=== PATIENT | female | born 1970 | race Caucasian/White ===

== ENCOUNTER 2017-12-09 11:16 | Inpatient (IN) | payer OTHER ==
--- NOTE | 2017-12-09 12:23 | ED Physician Documentation ---
PD HPI FOCAL NEURO - Stated complaint Stated Complaint: UNABLE TO WALK - Chief complaint Chief Complaint: Ext Problem - History obtained from History obtained from: Patient, Family - History of Present Illness Timing - onset: Other (Starting Sunday she had some mild back pain and yesterday morning she awoke with right leg weakness and it was giving out on her. She is unable to walk for the most part. The back pain is mild and she denies numbness in that leg or weakness or numbness anywhere else including both arms, the face, the left leg, and the saddle area. She has not had incontinence. She does have a history of polio in the right leg but it has never been debilitating for her. She says she does have a history of untreated hypertension and does not know what her blood pressure was the last time it was checked, but she does not seem to surprised that it is as high as it was when she checked in.) Review of Systems Ten Systems: 10 systems reviewed and negative Constitutional: denies: Fever, Chills Cardiac: denies: Chest pain / pressure, Palpitations Respiratory: denies: Dyspnea, Cough GI: denies: Abdominal Pain, Nausea Neurologic: denies: Headache, Head injury PD PAST MEDICAL HISTORY - Past Medical History Past Medical History: Yes Cardiovascular: Hypertension Other Past Medical History: poss. hx of polio as a child - Past Surgical History Past Surgical History: Yes General: Appendectomy - Present Medications Home Medications: Ambulatory Orders Medication Instructions Recorded Confirmed No Known Home Medications [No 12/09/17 12/09/17 Known Home Medications] - Allergies Allergies/Adverse Reactions: Allergies Allergy/AdvReac Type Severity Reaction Status Date / Time No Known Drug Allergies Allergy Verified 12/09/17 11:28 - Social History Does the pt smoke?: No Smoking Status: Never smoker Does the pt drink ETOH?: No Does the pt have substance abuse?: No - Family History Family history: reports: Non contributory - Immunizations Immunizations are current?: No PD ED PE NORMAL - Vitals Vital signs reviewed: Yes - General General: Alert and oriented X 3, No acute distress - HEENT HEENT: PERRL, EOMI - Neck Neck: Supple, no meningeal sign, No bony TTP - Cardiac Cardiac: RRR, No murmur - Respiratory Respiratory: No respiratory distress, Clear bilaterally - Abdomen Abdomen: Normal bowel sounds, Soft, Non tender - Derm Derm: Normal color, Warm and dry - Extremities Extremities: No edema, No calf tenderness / cord - Neuro Neuro: Alert and oriented X 3, legal paraprofessional 2-12 intact, Normal speech Eye Opening: Spontaneous Motor: Obeys Commands Verbal: Oriented GCS Score: 15 NIHSS - Time Time: 12:10 - Level of Consciousness Level of consciousness: (0) Alert, Keenly responsive LOC Questions: (0) Answers both Q's correct LOC Commands: (0) Performs both correctly - Gaze Best Gaze: (0) Normal - Visual Visual: (0) No loss - Facial Palsy Facial Palsy: (0) Normal, symmetrical movement - Motor Arms (both separate) Motor Arm (right): (0) No drift Motor Arm (left): (0) No drift - Motor Legs (both separate) Motor Leg (right): (1) Drift (she is weak elina flex/ext at the knee. B patellar reflexes and achilles reflexes about 1+) Motor Leg (left): (0) No drift - Limb Ataxia Limb Ataxia: (0) Absent - Sensory Sensory: (0) Normal - Best Language Best Language: (0) No aphasia - Dysarthria Dysarthria: (0) Normal - Extinction and Inattention (formally neg Extinction and inattention: (0) No abnormality - Total Score/Results Total Score/Result: 1 Results - Vitals Vitals: Vital Signs - 24 hr 12/09/17 12/09/17 11:20 13:28 Temperature 36.6 C Heart Rate 71 72 Respiratory 17 12 Rate Blood Pressure 213/124 H 175/89 H O2 Saturation 98 95 Oxygen O2 Source Room air - EKG (time done) 1227 Rate: Rate (enter#) (73) Rhythm: NSR [place]: Normal QRS: LVH Ischemia: Q waves (inferior/anterior) Compare to prior EKG: Old EKG unavailable Computer interpretation: Agree with computer - Labs Labs: Laboratory Tests 12/09/17 12/09/17 12/09/17 12:25 12:25 12:25 WBC 10.1 RBC 4.87 Hgb 14.0 Hct 41.7 MCV 85.7 MCH 28.7 MCHC 33.5 RDW 13.6 Plt Count 361 MPV 8.0 Neut # 7.5 H Lymph # 2.1 Dickenson # 0.4 Eos # 0.1 Baso # 0.1 Absolute Nucleated RBC 0.00 Nucleated RBC % 0.0 Sodium 141 Potassium 3.3 L Chloride 103 Carbon Dioxide 28 Anion Gap 10.0 BUN 8 Creatinine 0.6 Estimated GFR (MDRD) 107 Glucose 146 H Calcium 9.1 Total Bilirubin 0.5 AST 28 ALT 25 Alkaline Phosphatase 84 Total Creatine Kinase 521 H CK-MB (CK-2) 4.5 Troponin I < 0.04 Total Protein 7.5 Albumin 4.3 Globulin 3.2 Albumin/Globulin Ratio 1.3 Lipase 30 Urine Color Urine Clarity Urine pH Ur Specific [place] Urine Protein Urine Glucose (UA) Urine Ketones Urine Occult Blood Urine Nitrite Urine Bilirubin Urine Urobilinogen Ur Leukocyte Esterase Urine RBC Urine WBC Ur Squamous Epith Cells Urine Bacteria Ur Microscopic Review Urine Culture Comments 12/09/17 13:15 WBC RBC Hgb Hct MCV MCH MCHC RDW Plt Count MPV Neut # Lymph # Dickenson # Eos # Baso # Absolute Nucleated RBC Nucleated RBC % Sodium Potassium Chloride Carbon Dioxide Anion Gap BUN Creatinine Estimated GFR (MDRD) Glucose Calcium Total Bilirubin AST ALT Alkaline Phosphatase Total Creatine Kinase CK-MB (CK-2) Troponin I Total Protein Albumin Globulin Albumin/Globulin Ratio Lipase Urine Color YELLOW Urine Clarity CLOUDY Urine pH 6.5 Ur Specific [place] 1.020 Urine Protein 30 H Urine Glucose (UA) NEGATIVE Urine Ketones NEGATIVE Urine Occult Blood TRACE-LYSE Urine Nitrite POSITIVE H Urine Bilirubin NEGATIVE Urine Urobilinogen 0.2 (NORMAL) Ur Leukocyte Esterase MODERATE H Urine RBC 0-5 Urine WBC 11-25 H Ur Squamous Epith Cells FEW Squamous Urine Bacteria Many H Ur Microscopic Review INDICATED Urine Culture Comments INDICATED - Rads (name of study) CT Head Radiology: EMP read contemporaneously (Normal) PD MEDICAL DECISION MAKING - ED course ED course: 47-year-old woman with new right leg weakness that certainly could be kind of a sciatica type thing but it is not associated with numbness in her back pain is mild, given the association with significant blood pressure issues, neurologic issue, a central neurologic issue must be considered. Her head CT was negative. She is clearly outside of the timeframe for TPA. Spoke with Dr. Jaimes for admission at 1:35 PM and he requests that we consult with neurology prior to this given her young age and [facility] was called for consultation. At that point her blood pressure drifted down to 165/77 without specific intervention. Spoke with Eusebia Andrew at [facility] ([id number]) who agreed with obs here for MRI Brain (+/- MRI Lspine) Departure - Departure Disposition: ED Place in Observation Clinical Impression: Stroke-like symptoms Condition: Serious
[2017-12-09 12:35] LABS: BASOPHILS # (AUTO) 0.1 10^3/uL (0.0-0.1); BASOPHILS % (AUTO) 0.8 %; EOSINOPHILS # (AUTO) 0.1 10^3/uL (0.0-0.7); EOSINOPHILS % (AUTO) 0.6 %; LYMPHOCYTES # (AUTO) 2.1 10^3/uL (1.5-3.5); LYMPHOCYTES % (AUTO) 20.4 %; MEAN CORPUSCULAR HEMOGLOBIN 28.7 pg (27.0-31.0); MEAN CORPUSCULAR HGB CONC 33.5 g/dL (32.0-36.0); MEAN CORPUSCULAR VOLUME 85.7 fL (81.0-99.0); MONOCYTES # (AUTO) 0.4 10^3/uL (0.0-1.0); MONOCYTES % (AUTO) 3.7 %; NEUTROPHILS # (AUTO) 7.5 10^3/uL (1.5-6.6); NEUTROPHILS % (AUTO) 74.5 %; PLT - PLATELET COUNT 361 10^3/uL (130-450); RED BLOOD COUNT 4.87 10^6/uL (4.20-5.40); RED CELL DISTRIBUTION WIDTH 13.6 % (12.0-15.0); WHITE BLOOD COUNT 10.1 x10^3/uL (4.8-10.8)
[2017-12-09 12:46] LABS: ALBUMIN 4.3 g/dL (3.2-5.5); ALBUMIN/GLOBULIN RATIO 1.3 (1.0-2.2); BILIRUBIN,TOTAL 0.5 mg/dL (0.2-1.0); CALCIUM 9.1 mg/dL (8.5-10.3); CREATININE 0.6 mg/dL (0.4-1.0); TOTAL PROTEIN 7.5 g/dL (6.7-8.2)
[2017-12-09 12:50] LABS: TROPONIN I < 0.04 ng/mL (<0.49)
[2017-12-09 12:53] LABS: CREATINE KINASE MB 4.5 ng/mL (0.6-6.3)
--- NOTE | 2017-12-09 13:14 | CT Report ---
EXAM: CT HEAD EXAM DATE: 12/09/2017 12:53 PM. CLINICAL HISTORY: R leg deficits. COMPARISON: None. TECHNIQUE: Multiaxial CT images were obtained from the foramen magnum to the vertex. Reformats: Coron al. IV contrast: None. In accordance with CT protocol optimization, one or more of the following dose reduction techniques w ere utilized for this exam: automated exposure control, adjustment of mA and/or KV based on patient s ize, or use of iterative reconstructive technique. FINDINGS: Parenchyma: No intraparenchymal hemorrhage. No evidence of mass, midline shift, or CT findings of inf arction. Stuart-white differentiation is distinct. Extraaxial Spaces: Normal for age. No subdural or epidural collections identified. Ventricles: Normal in size and position. Sinuses and Orbits: Imaged paranasal sinuses, orbits, and mastoids show no significant abnormality. Bones: No evidence of fracture or calvarial defect. IMPRESSION: No evidence of acute intracranial process [facility] Referring Provider Line: [phone] SITE ID: [id number]
--- NOTE | 2017-12-09 13:14 | CT Preliminary Report ---
Exam: CT HEAD W/O IMPRESSION: No evidence of acute intracranial process [facility] SITE ID: [id number]
[2017-12-09] MEDS ORDERED: ASPIRIN CHEW 81 MG TABLET PO STA (13:25)
[2017-12-09 13:28] LABS: BILIRUBIN,URINE NEGATIVE (NEGATIVE); GLUCOSE, URINE (UA) NEGATIVE (NEGATIVE); KETONES,URINE (UA) NEGATIVE (NEGATIVE); LEUKOCYTE ESTERASE, URINE MODERATE (NEGATIVE); NITRITE,URINE POSITIVE (NEGATIVE); OCCULT BLOOD,URINE TRACE-LYSE (NEGATIVE); PH,URINE 6.5 PH (5.0-7.5); PROTEIN,URINE 30 mg/dL (NEGATIVE); UROBILINOGEN,URINE 0.2 (NORMAL) E.U./dL (NORMAL)
[2017-12-09 13:34] LABS: CLARITY,URINE CLOUDY (CLEAR)
[2017-12-09 13:42] LABS: RBC,URINE 0-5 /HPF (0-5); SQUAMOUS EPITHELIAL CELL,UR FEW Squamous (<= Few)
[2017-12-09 13:43] LABS: BACTERIA,URINE Many /HPF (None Seen)
[2017-12-09] MEDS ORDERED: SODIUM CHLORIDE FLUSH 0.9% 10 ML SYRINGE IVP PRN (14:27)
[2017-12-09] MEDS ORDERED: ACETAMINOPHEN 325 MG TABLET PO PRN (14:27)
[2017-12-09] MEDS ORDERED: SODIUM CHLORIDE 0.9% IV ONE (17:09)
[2017-12-09] MEDS: SODIUM CHLORIDE FLUSH 0.9% 10 ML SYRINGE IVP SCH ×2 (17:18→23:54)
[2017-12-09] MEDS: cefTRIAXone 1 GM in SODIUM CHLORIDE 0.9% MINIBAG 100 ML IV SCH (17:18)
--- NOTE | 2017-12-09 19:00 | HISTORY & PHYSICAL EXAMINATION ---
Chief Complaint - Chief Complaint Chief Complaint: "My leg is so weak, I fell because it gave out" History of Present Illness - Admitted From Admitted From:: ER - History Obtained From Records Reviewed: none available History obtained from: Pateint Exam Limitations: none - History of Present Illness HPI Comment/Other: Rajani Nunez is a pleasant 47yoF with hx of untreated hypertension and polio as a child. She does not have a PCP and only sees [facility] for prn needs. She is self described [id number] who commutes to [place] from [facility] for work, reports recent weight gain due to stress and inactivity. Patient was in her usual state of health until Sunday morning when she awoke for work. She had new mild low back pain and right leg weakness. 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 No other injury. She reports also feeling "off balance" but denies dizziness. She drove home after work, having to move inch by inch when no supporting wall or rail available. She put a brace on it at home for support. Today the symptoms were not better so she came to ER for eval. She denies visual changes, no confusion or speech changes. No pain in the leg or change in sensation. She has had no dizziness/lightheadedness or syncope. She denies similar episodes in the past. Denies prior injury. Denies bowel or bladder change/incontinence. --- Her BP is high, she says she is nto suprised. It had been high in [facility] before but she is very much against taking medications unless absolutely necessary. --- Of note 6-7mo ago she reports problem with the left arm where the deltoid went cold and weak, she couldn't lift her arm. She says the hand "would take off on its own". She saw [facility], told she had carpal tunnel, given a brace. No symptoms recently. ER course of stay: In ER hypertensive and tachycardic, Labs remarkable for UTI, renal function WNL. Her CK is elevated 521. Case discussed with Vietnamese Neuro who recommends MRI brain and L-spine. Hospitalist contacted for admission. 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 : reports: None HEENT: reports: Chronic vision loss Psych: reports: None Musculoskeletal: reports: None Derm: reports: None MRSA Hx?: No - Past Surgical History General: reports: Appendectomy - Family & Social History Family History: Mother: , Cancer (MMMT), Father: , CAD, [place] (age 80), Sister: Alive and Well Living arrangement: At home Living Situation: Alone - Substance History Use: Uses substance without health or social issues: NONE Abuse: Recurrent use of substance despite neg consequences: NONE Dependence: Experiences withdrawal or developed tolerances: NONE - POLST Patient has POLST: No POLST Status: Full Code Meds/Allgy - Home Medications Home Medications: Ambulatory Orders Medication Instructions Recorded Confirmed No Known Home Medications [No 12/09/17 12/09/17 Known Home Medications] - Allergies Allergies/Adverse Reactions: Allergies Allergy/AdvReac Type Severity Reaction Status Date / Time No Known Drug Allergies Allergy Verified 12/09/17 11:28 Review of Systems - Constitutional Constitutional: reports: Weight gain (25lbs in a years). denies: Fever, Chills - Eyes Eyes: reports: Corrective lenses (readers). denies: Pain, Field loss, Vision loss - Ears, Nose & Throat Ears, Nose & Throat: reports: Hearing loss. denies: Hearing aids, Vertigo - Cardiovascular Cariovascular: reports: Edema (occasional BLE after driving). denies: Irregular heart rate, Palpitations, Chest pain, Lightheadedness, Syncope, Exertional dyspnea - Respiratory Respiratory: denies: Cough, SOB at rest, SOB with exertion - Gastrointestinal Gastrointestinal: denies: Abdominal pain, Constipation, Diarrhea, Nausea, Vomiting - Genitourinary Genitourinary: reports: Frequency ("due to 2 pots of coffee a day"). denies: Dysuria - Musculoskeletal Musculoskeletal: reports: Back pain (mild low back), Muscle weakness (right leg) . denies: Muscle pain, Joint pain - Integumentary Integumentary: denies: Rash - Neurological Neurological: reports: Focal weakness (RLE). denies: General weakness, Headache , Numbness, Memory problems - Psychiatric Psychiatric: reports: Depression (recently, situational) - Hematologic/Lymphatic Hematologic/Lymphatic: denies: Anemia, Bruising, Blood clots, Recurrent infections Exam - Vital Signs Reviewed Vital Signs: Yes Vital Signs: Vital Signs x48h Temp Pulse Pulse Pulse Resp BP BP 12/09/17 15:55 63 154/81 H 12/09/17 15:36 36.7 C 67 67 16 185/67 H 12/09/17 15:22 80 16 166/107 H Pulse Ox 12/09/17 15:55 12/09/17 15:36 95 12/09/17 15:22 98 - Physical Exam General Appearance: positive: No acute distress, Alert Eyes Bilateral: positive: Normal inspection, PERRL, EOMI, Conjunctivae nml ENT: positive: Pharynx nml, No signs of dehydration Neck: positive: No JVD. negative: Stiff neck, Carotid bruit Respiratory: positive: Chest non-tender, No respiratory distress, Breath sounds nml Cardiovascular: positive: Regular rate & rhythm, No murmur Peripheral Pulses: positive: 2+ Abdomen: positive: Non-tender, Nml bowel sounds, No distention (obese, soft) Back: positive: Nml inspection Skin: positive: Color nml, Warm, Dry. negative: Skin rash Extremities: positive: Non-tender, Full ROM, Nml appearance (trace pre-tibial edema). negative: Calf tenderness, Joint swelling Neurologic/Psychiatric: positive: Oriented x3, Sensation nml, Mood/affect nml. negative: Motor nml (RLE with decreased strnegth in flexion and decreased ability to hold up against gravity, cannot lift against resistance, decreased coordination for heel-joshua slide.) Conclusion/Plan - Problem List (1) Right leg weakness Conclusion/Plan: Symptom onset acute, x1d without improvement or worsening. No sensory deficit. NO offending drugs Differentials include: 1. hemmorrahgic stroke or SAH - R/O, neg head CT 2. ischemic stroke - get MRI brain 3. lumboscaral radiculopathy (although no pain) - MRI L spine 4. Polymyositis - no skin findings c/w DM or PM 5. Myositis r/t connective tissue disease, lupus, RA or sjogren's (no hx of any of these) 6. Hypothryoidism, given recent weight gain - check TSH 7. Spinal cord disease - R/O, no urinary symptoms and not bilateral 8. Infection - rare to be so focal, has UTI, will treat work-up as noted for each (2) Hypertension Conclusion/Plan: Hx of previous high readings, but care at multiple [facility] so never diagnosed or treated. Given stroke still on differential and this is chronic, will allow for permissive HTN till MRI is negative, then consider low dose antihypertesnive if patientis willing to start this. She is quite reluctant to take any meds. -Monitor BP routinely and titrate meds as needed (3) UTI (urinary tract infection) Conclusion/Plan: UA c/w infection, no LUTS though. Given focal weakness, will treat empirically. -CTX daily -Await cx - Lab Results Lab results reviewed: Yes Jamie Bones: 12/09/17 12:25 12/09/17 12:25 - EKG Results EKG Interpreted Independently: Yes Core Measures - Anticipated LOS I expect patient to be DC'd or transferred within 96 hours.: Yes - DVT/VTE - Prophylaxis VTE/DVT Device ordered at admit?: No VTE/DVT Prophylaxis med ordered at admit?: Yes - Stroke - Rehab Assessment Rehab services assessment to be ordered?: Yes
[2017-12-10 06:29] LABS: HEMOGLOBIN A1C 0.53 g/dL; HEMOGLOBIN A1C % 5.6 % (4.6-6.2)
[2017-12-10] MEDS: cefTRIAXone 1 GM in SODIUM CHLORIDE 0.9% MINIBAG 100 ML IV SCH (08:37)
[2017-12-10] MEDS: ENOXAPARIN 40 MG/0.4 ML SYRINGE SUBQ SCH (08:37)
[2017-12-10] MEDS: SODIUM CHLORIDE FLUSH 0.9% 10 ML SYRINGE IVP SCH ×3 (08:38→23:56)
[2017-12-10] MEDS: POLYETHYLENE GLYCOL 3350 17 GM PACKET PO SCH (08:39)
[2017-12-10] MEDS ORDERED: LORazepam 0.5 MG TABLET PO SCH (09:00)
[2017-12-10] MEDS ORDERED: ASPIRIN 325 MG TABLET PO SCH (11:00)
--- NOTE | 2017-12-10 12:47 | MRI Preliminary Report ---
Exam: MRI BRAIN W/O Impression: 1. Small, acute to subacute (7 days old or less). Lacunar type infarction, left nick radiata as vlad cribed. 2. Foci of encephalomalacia are seen in the posterior and inferior right cerebellum, consistent with the sequela of prior, embolic type infarction. This is in the right ICA territory. 3. There is a moderate amount of white matter disease in the supratentorial brain. The etiology is un certain. The findings are relatively nonspecific and differential diagnostic considerations would inc lude virtually the entire gamma to primary disease, including a demyelinating process. Overall appear ance is most suggestive of chronic microangiopathy, however, this would be unusual in a patient of 47 years. There is no involvement of the temporal lobes, suggesting that CADASIL is unlikely. Is there a history of diabetes, hypertension or other cause for predisposition to small vessel disease in this patient? 4. No other significant intracranial pathology is demonstrated. Main arteries appear patent. SITE ID: [id number]
--- NOTE | 2017-12-10 12:55 | MRI Preliminary Report ---
Exam: MRI LUMBAR SPINE W/O Impression: 1. Degenerative disk and facet changes are seen at multiple levels in lumbar spine as described. 2. The degenerative changes are most prominent at the L4-L5 level where there is moderate to severe c entral zone spinal stenosis and relatively severe subarticular zone (lateral recess causing. Stenosis bilaterally. There could potentially be compromise of traversing L5 nerve roots in the subarticular sound. Recommend clinical correlation for L5 radiculopathy. 3. No other significant stenosis is demonstrated and no other potential neural impingement is identif ied. SITE ID: [id number]
[2017-12-10] MEDS ORDERED: LISINOPRIL 5 MG TABLET PO SCH (13:00)
[2017-12-10] MEDS ORDERED: ATORVASTATIN 40 MG TABLET PO SCH (13:00)
[2017-12-10 13:48] LABS: CHOL/HDL RATIO 3.5 (<4.4); CHOLESTEROL 198 mg/dL; HDL CHOLESTEROL 56 mg/dL; LDL CHOLESTEROL,CALCULATED 123 mg/dL; LDL/HDL RATIO 2.2 (<4.4); VLDL CHOLESTEROL 19 mg/dL
--- NOTE | 2017-12-10 13:57 | MRI Report ---
MRI brain without contrast INDICATION: 47-year-old female with right leg weakness. Please assess. COMPARISON: Head CT 12/09/2017. TECHNIQUE: 1. T1 sagittal and fat saturated T2 coronal. 2. Axial T1 3-D, FLAIR, T2, T2*, and DWI. FINDINGS: The third and lateral ventricles are mildly enlarged. The cortical sulci are small. This probably rep resents ex vacuo ventriculomegaly due to central volume loss. There is at least a moderate amount of white matter disease in the supratentorial brain, manifested as focal and confluent T2 hyperintensiti es that are scattered throughout the paraventricular, deep, and subcortical white matter bilaterally. In addition, there is involvement of both subinsular regions. Estimate is difficult given the absenc e of a sagittal T2 FLAIR sequence; however, there does appear to be some involvement of the pericallo yaneli white matter bilaterally. However, no true juxtacortical lesion is demonstrated. In addition, no obvious corpus callosal lesion is identified and no focal brainstem lesion is demonstrated. There are small foci of encephalomalacia in the posterior and inferior right cerebellum, consistent w ith the sequela of remote embolic-type infarction. This is in the right PICA territory. No diffusion restriction is demonstrated at this time. There appear to be flow voids for the main intracranial arteries. On DWI, a curvilinear focus of diff usion restriction is demonstrated in the posterior left nick radiata, extending over a distance of roughly 1.5 x 0.6 cm. This is consistent with recent infarction. This probably represents a small ves silvio-type infarction rather than an embolic infarction. No other diffusion restriction is demonstrated . No evidence of acute or chronic hemorrhage on T2*GRE sequence. Noted is a prominent tortuous loop of the left vertebral artery that contacts and significantly inden ts/deforms the medulla, most prominent anteriorly on the left. The clinical significance of this find ing is uncertain. No abnormal extra-axial fluid collection. No mass effect or midline shift. Limited assessment of the orbits reveals no gross pathology. The paranasal sinuses are essentially clear. No mastoid and middle ear effusion is demonstrated. IMPRESSION: 1. Small acute to subacute (7 days old or less) lacunar-type infarction, left nick radiata as descr ibed. 2. Foci of encephalomalacia are seen in the posterior and inferior right cerebellum, consistent with the sequela of prior embolic-type infarction. This is in the right PICA territory. 3. There is a moderate amount of white matter disease in the supratentorial brain. The etiology is un certain. The findings are relatively nonspecific and differential diagnostic considerations would inc lude virtually the entire gamut of white matter disease, including a demyelinating process. Overall a ppearance is most suggestive of chronic microangiopathy; however, this would be unusual in a patient of 47 years. There is no involvement of the temporal lobes, suggesting that CADASIL is unlikely. Is t here a history of diabetes, hypertension or other cause for predisposition to small vessel disease in this patient? 4. No other significant intracranial pathology is demonstrated. Main arteries appear patent. Critical result: A preliminary report for this examination was called to ERVIN Medrano, following interpretatio n on 12/10/2017 at approximately 12:44 PM Referring Provider Line: [phone] SITE ID: [id number]
--- NOTE | 2017-12-10 13:57 | MRI Report ---
MRI LUMBAR SPINE WITHOUT CONTRAST INDICATION: 47-year-old female with right leg weakness. COMPARISON: None. TECHNIQUE: 1. Sagittal STIR, T1 and T2. 2. Axial T1 and T2 FINDINGS: For the purposes of this dictation, the presence of 5 wdo-noa-eetanuo lumbar-type vertebrae has been assumed and the last fully articulated level has been labeled L5. There is a minor levoconvex curvatu re with apex at L3. With the patient lying supine, the [place] angle appears to measure about 6 degrees. Alignment is otherwise normal. There is mild concavity of vertebral endplates at a few levels, consistent with old minor central-typ e endplate compression fracture. Vertebral body heights are otherwise preserved. No evidence of recen t (acute or subacute) compression fracture. There is loss of normal T2 signal from the disks at all levels, confirming degenerative change. Howev er, the disk space heights are maintained throughout. A few T1/T2 hyperintense foci are demonstrated consistent with intraosseous hemangiomata or other shwetha ign fat-containing bone lesion. Marrow signal intensity is otherwise unremarkable. It is somewhat difficult to localize the tip of the conus on the sequences provided. It probably term inates in a normal fashion, at or just below the L1-L2 disk level. There is no abnormal thickening or lipomatous change of the filum. Axial images: L2-L3: No disk herniation. No spinal canal or foraminal stenosis. L3-L4: Tiny right-sided intraforaminal protrusion. Larger broad-based left intra-/extraforaminal prot rusion. Minor left subarticular zone stenosis. No impingement of traversing left-sided nerve roots. N o central zone or right subarticular zone stenosis. Mild left foraminal stenosis. L4-L5: Circumferential disk bulge. Small right intra-/extraforaminal protrusion. Larger broad-based l eft intra-/extraforaminal extrusion. Degenerative facet arthrosis with mild to moderate bony hypertro phy. Moderate redundancy of the ligamenta flava and mild prominence of the intralaminar fat pad. Circ umferential thecal sac compression. There is relatively severe subarticular zone narrowing bilaterall y. There could be compromise of traversing L5 nerve roots. Moderate to severe central zone spinal maryanne nosis. Moderate bilateral foraminal stenoses. L5-S1: Shallow posterior protrusion. No mass effect on the thecal sac or S1 nerve roots. Degenerative facet arthrosis with moderate bony hypertrophy. No foraminal encroachment. Very mild fatty atrophy is identified in the posterior paraspinal musculature. There appears to be a tiny (roughly 3 mm diameter) submucosal fibroid in the anterior uterus (see image 3 of series 401). T he regional paraspinous soft tissues are otherwise unremarkable. IMPRESSION: 1. Degenerative disk and facet changes are seen at multiple levels in lumbar spine as described. 2. The degenerative changes are most prominent at the L4-L5 level where there is moderate to severe c entral zone spinal stenosis and relatively severe subarticular zone (lateral recess) stenosis bilater ally. There could potentially be compromise of traversing L5 nerve roots in the subarticular zone. Re commend clinical correlation for L5 radiculopathy. 3. No other significant stenosis is demonstrated and no other potential neural impingement is identif ied. Referring Provider Line: [phone] SITE ID: [id number]
--- NOTE | 2017-12-10 18:50 | PROVIDER PROGRESS NOTE ---
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 No sensory deficit. No other neurologic deficits. Differntial considered and workup included normal head CT. MRI brain today with severe white matter disease, OLD R PICA embolic type infarct and NEW L lacunar infarct, more likely from small vessel disease. Longstanding uncontrolled HTN likely contributing. 6pm noted to have increasing RUE weakness, +drift and poor coordination. D/w Dr Alberto Palafox, [facility] neuro, advises that lacunar type infarct often wax/wane of have further extension. Recommends: -IVF to increase cerebral perfusion, hold antihypertensive -CT brain to r/o hemorrhagic conversion -CTA head/neck to assess vascular structures +He will be oncall tomorrow and feel free to touch base with results -Continue tele -Await ECHO and carotid US results -PT/OT eval, reccs IRF, referrals sent to [facility] -ASA + statin (2) Uncontrolled hypertension Conclusion/Plan: Hx of previous high readings, but care at multiple [facility] so never diagnosed or treated. Given stroke in differential on admit, permissive HTN allowed. -Now 48hr post insult and started on low dose lisinopril. AM BP fluctuating 150/80-200/80. +given new symptoms, lisinopril stopped, resume at 2.5mg in future -Monitor BP routinely and titrate meds as needed (3) UTI (urinary tract infection) Conclusion/Plan: UA c/w infection, no LUTS though. Cx E coli. -CTX daily -Await cx sensitivity and switch to PO agent - Current Meds Current Meds: Current Medications Generic Name Dose Route Start Last Admin Trade Name Freq PRN Reason Stop Dose Admin Aspirin 325 mg 12/10/17 11:00 12/10/17 12:31 Ese PO 325 mg DAILYWM MONICA Administration Enoxaparin Sodium 40 mg 12/10/17 09:00 12/10/17 08:37 Lovenox SUBQ 40 mg DAILY MONICA Administration Polyethylene Glycol 17 gm 12/10/17 09:00 12/10/17 08:39 Miralax PO Not Given DAILY MONICA Sodium Chloride 10 ml 12/09/17 17:00 12/10/17 08:38 Normal Saline Flush 0.9% IVP 10 ml 0100,0900,1700 MONICA Administration - Lab Result Fish Bone Diagrams: 12/09/17 12:25 12/09/17 12:25 - Diagnostic Imaging Results Diagnostic Imaging Results: Discussed with radiologist (Dr Rivera) - Additional Planning Condition/Complexity: Guarded My Orders: My Active Orders 12/10/17 Evaluate and Treat OT [OT] Routine Evaluate and Treat PT [PT] Routine 12/10/17 11:00 Aspirin [Ese] 325 mg PO DAILYWM 12/10/17 13:50 Echo Complete w/Bubble Study [ECHO] Routine 12/10/17 13:51 Carotid Doppler Complete [US] Routine 12/10/17 18:21 NPO [DIET] Brain [Head Angio] [CT] Stat 12/10/17 18:22 Brain W/O [MRI] Stat 12/10/17 19:00 NS 0.9% @ 125 mls/hr Sodium Chloride 0.9% [Normal Saline 0.9%] 1,000 ml IV 125 mls/hr 12/10/17 21:00 Atorvastatin [Lipitor] 80 mg PO QPM 12/11/17 09:00 cefTRIAXone [Rocephin] 1 gm Sodium Chloride 0.9% Minibag [Normal Saline 0.9% Minibag] 100 ml IV Q24H Consult/Specialty: Neurology (Dr Alberto Palafox @ 1820 related to new symptoms) Plan Discussed with:: Patient Time Spent: 31-60 minutes Subjective - Subjective Patient Reports: Other (Increasing RUE weakness, no pain. Has some timgling in the hand and foot, she thinks from lack of use.. No visual, speech or sensation changes) Objective Vital Signs: Vital Signs - 24 hr 12/09/17 12/10/17 12/10/17 19:59 00:00 05:58 Temperature 37.1 C 36.7 C 36.5 C Heart Rate [ Activity] Heart Rate [ 72 Brachial] Heart Rate [ 66 64 Radial] Heart Rate [ Supine] Respiratory 20 20 18 Rate Blood Pressure [Activity] Blood Pressure 153/74 H 183/82 H 165/82 H [Left Brachial artery] Blood Pressure [Supine] O2 Saturation 94 96 97 12/10/17 12/10/17 12/10/17 07:17 08:04 10:26 Temperature 36.6 C Heart Rate [ 85 Activity] Heart Rate [ Brachial] Heart Rate [ 64 73 Radial] Heart Rate [ 80 Supine] Respiratory 18 Rate Blood Pressure 200/80 H [Activity] Blood Pressure 180/86 H 152/80 H [Left Brachial artery] Blood Pressure 175/73 H [Supine] O2 Saturation 96 12/10/17 12/10/17 12/10/17 10:28 13:36 15:20 Temperature 37.2 C 37.1 C Heart Rate [ 85 Activity] Heart Rate [ 68 Brachial] Heart Rate [ 86 Radial] Heart Rate [ 81 Supine] Respiratory 19 20 Rate Blood Pressure 200/80 H [Activity] Blood Pressure 178/97 H 143/59 H [Left Brachial artery] Blood Pressure 175/73 H [Supine] O2 Saturation 98 96 Oxygen O2 Source Room air I&O (Last 24 Hrs): Intake and Output Totals x24h 12/08/17 12/09/17 12/10/17 23:59 23:59 23:59 Intake Total 700 1090 Output Total 775 Balance 700 315 General: No acute distress HEENT: Atraumatic, PERRLA, EOMI Neck: No JVD Neuro: Alert, Focal Deficits (RUE with weakness, poor dexterity (finger to nose) , +drift. RLE with weakness, poor dexterity), Oriented Times 3, Other (speech clear, EOMI, Left side with normal strength) Cardiovascular: Regular rate, No murmurs Respiratory: Chest non-tender, No respiratory distress, Breath sounds nml Abdomen: Normal bowel sounds, Soft Extremities: No clubbing, No cyanosis, No edema, Normal pulses Skin: No rashes, No breakdown - Results Results: Laboratory Results WBC 10.1 x10^3/uL (4.8-10.8) 12/09/17 12:25 RBC 4.87 10^6/uL (4.20-5.40) 12/09/17 12:25 Hgb 14.0 g/dL (12.0-16.0) 12/09/17 12:25 Hct 41.7 % (37.0-47.0) 12/09/17 12:25 MCV 85.7 fL (81.0-99.0) 12/09/17 12:25 MCH 28.7 pg (27.0-31.0) 12/09/17 12:25 MCHC 33.5 g/dL (32.0-36.0) 12/09/17 12:25 RDW 13.6 % (12.0-15.0) 12/09/17 12:25 Plt Count 361 10^3/uL (130-450) 12/09/17 12:25 MPV 8.0 fL (7.9-10.8) 12/09/17 12:25 Neut # 7.5 10^3/uL (1.5-6.6) H 12/09/17 12:25 Lymph # 2.1 10^3/uL (1.5-3.5) 12/09/17 12:25 [place] # 0.4 10^3/uL (0.0-1.0) 12/09/17 12:25 Eos # 0.1 10^3/uL (0.0-0.7) 12/09/17 12:25 Baso # 0.1 10^3/uL (0.0-0.1) 12/09/17 12:25 Absolute Nucleated RBC 0.00 x10^3/uL 12/09/17 12:25 Nucleated RBC % 0.0 /100WBC 12/09/17 12:25 Sodium 141 mmol/L (135-145) 12/09/17 12:25 Potassium 3.3 mmol/L (3.5-5.0) L 12/09/17 12:25 Chloride 103 mmol/L (101-111) 12/09/17 12:25 Carbon Dioxide 28 mmol/L (21-32) 12/09/17 12:25 Anion Gap 10.0 (6-13) 12/09/17 12:25 BUN 8 mg/dL (6-20) 12/09/17 12:25 Creatinine 0.6 mg/dL (0.4-1.0) 12/09/17 12:25 Estimated GFR (MDRD) 107 (>89) 12/09/17 12:25 Glucose 146 mg/dL (70-100) H 12/09/17 12:25 Glycated Hemoglobin 5.6 % (4.6-6.2) 12/10/17 05:42 Estim Average Glucose 114 (70-100) H 12/10/17 05:42 Calcium 9.1 mg/dL (8.5-10.3) 12/09/17 12:25 Total Bilirubin 0.5 mg/dL (0.2-1.0) 12/09/17 12:25 AST 28 IU/L (10-42) 12/09/17 12:25 ALT 25 IU/L (10-60) 12/09/17 12:25 Alkaline Phosphatase 84 IU/L (42-121) 12/09/17 12:25 Total Creatine Kinase 374 IU/L (22-269) H 12/10/17 05:42 CK-MB (CK-2) 4.5 ng/mL (0.6-6.3) 12/09/17 12:25 Troponin I < 0.04 ng/mL (<0.49) 12/09/17 12:25 Total Protein 7.5 g/dL (6.7-8.2) 12/09/17 12:25 Albumin 4.3 g/dL (3.2-5.5) 12/09/17 12:25 Globulin 3.2 g/dL (2.1-4.2) 12/09/17 12:25 Albumin/Globulin Ratio 1.3 (1.0-2.2) 12/09/17 12:25 Triglycerides 95 mg/dL (-149) 12/10/17 05:42 Cholesterol 198 mg/dL (-199) 12/10/17 05:42 LDL Cholesterol, Calc 123 mg/dL (-129) 12/10/17 05:42 VLDL Cholesterol 19 mg/dL 12/10/17 05:42 HDL Cholesterol 56 mg/dL (60-) L 12/10/17 05:42 LDL/HDL Ratio 2.2 (<4.4) 12/10/17 05:42 Cholesterol/HDL Ratio 3.5 (<4.4) 12/10/17 05:42 Lipase 30 U/L (22-51) 12/09/17 12:25 TSH 5.85 uIU/mL (0.34-5.60) H 12/10/17 05:42 Free T4 1.00 ng/dL (0.58-1.64) 12/10/17 05:42 Free T3 pg/mL 3.07 pg/mL (2.5-3.9) 12/10/17 05:42 Urine Color YELLOW 12/09/17 13:15 Urine Clarity CLOUDY (CLEAR) 12/09/17 13:15 Urine pH 6.5 PH (5.0-7.5) 12/09/17 13:15 Ur Specific [place] 1.020 (1.002-1.030) 12/09/17 13:15 Urine Protein 30 mg/dL (NEGATIVE) H 12/09/17 13:15 Urine Glucose (UA) NEGATIVE mg/dL (NEGATIVE) 12/09/17 13:15 Urine Ketones NEGATIVE mg/dL (NEGATIVE) 12/09/17 13:15 Urine Occult Blood TRACE-LYSE (NEGATIVE) 12/09/17 13:15 Urine Nitrite POSITIVE (NEGATIVE) H 12/09/17 13:15 Urine Bilirubin NEGATIVE (NEGATIVE) 12/09/17 13:15 Urine Urobilinogen 0.2 (NORMAL) E.U./dL (NORMAL) 12/09/17 13:15 Ur Leukocyte Esterase MODERATE (NEGATIVE) H 12/09/17 13:15 Urine RBC 0-5 /HPF (0-5) 12/09/17 13:15 Urine WBC 11-25 /HPF (0-5) H 12/09/17 13:15 Ur Squamous Epith Cells FEW Squamous (<= Few) 12/09/17 13:15 Urine Bacteria Many /HPF (None Seen) H 12/09/17 13:15 Ur Microscopic Review INDICATED 12/09/17 13:15 Urine Culture Comments INDICATED 12/09/17 13:15
[2017-12-10] MEDS ORDERED: IOPAMIDOL-300 100 ML VIAL ONE ×2 (18:52→19:28)
--- NOTE | 2017-12-10 19:01 | Ultrasound Preliminary Report ---
Exam: US CAROTID DOPPLER COMPLETE IMPRESSION: No hemodynamically significant stenoses. Validated velocity measurements with angiographic measurements and velocity criteria are extrapolated from diameter data as defined by the Society of Radiologists in Ultrasound Consensus Conference Radi ology 2003; 229;340-346. [facility] SITE ID: [id number]
--- NOTE | 2017-12-10 19:24 | Ultrasound Report ---
EXAM: CAROTID DOPPLER ULTRASOUND EXAM DATE: 12/10/2017 05:25 PM. CLINICAL HISTORY: Stroke. COMPARISON: None. TECHNIQUE: Real-time sonographic vascular imaging was performed by the tile finisher through the JET[employer] d arterial system with a linear transducer utilizing color-flow, Doppler flow and spectral analysis. Multiple support representative static images were saved for review. FINDINGS: Moderate calcified plaque seen at the bilateral carotid bulb extending into the internal ca rotid arteries. Bilateral vertebral artery flow is antegrade. Right: RCCA Prox: PSV 113 cm/sec. RCCA Dist: PSV 56 cm/sec, EDV 10 cm/sec. RECA: PSV 57 cm/sec. R Bulb: PSV 71 cm/sec, EDV 11 cm/sec, ICA/CCA ratio 1.2. NAM Prox: PSV 78 cm/sec, EDV 17 cm/sec, ICA/CCA ratio 1.4. NAM Mid: PSV 75 cm/sec, EDV 16 cm/sec, ICA/CCA ratio 1.3. NAM Dist: PSV 46 cm/sec, EDV 1 cm/sec, ICA/CCA ratio 0.86. RVA: PSV 56 cm/sec. RVA flow direction: Antegrade. Left: LCCA Prox: PSV 72 cm/sec. LCCA Dist: PSV 75 cm/sec, EDV 11 cm/sec. LECA: PSV 61 cm/sec. L Bulb: PSV 63 cm/sec, EDV 10 cm/sec, ICA/CCA ratio 0.84. LICA Prox: PSV 77 cm/sec, EDV 13 cm/sec, ICA/CCA ratio 1.0. LICA Mid: PSV 83 cm/sec, EDV 19 cm/sec, ICA/CCA ratio 1.1. LICA Dist: PSV 70 cm/sec, EDV 16 cm/sec, ICA/CCA ratio 0.93. LVA: PSV 94 cm/sec. LVA flow direction: Antegrade. Other: None. IMPRESSION: No hemodynamically significant stenoses. Validated velocity measurements with angiographic measurements and velocity criteria are extrapolated from diameter data as defined by the Society of Radiologists in Ultrasound Consensus Conference Radi ology 2003; 229;340-346. [facility] Referring Provider Line: [phone] SITE ID: [id number]
[2017-12-10] MEDS ORDERED: IOPAMIDOL-300 100 ML VIAL IVP ONE (19:41)
--- NOTE | 2017-12-10 20:17 | CT Report ---
EXAM: CT ANGIOGRAM HEAD. CT SCAN OF THE HEAD WITHOUT AND WITH CONTRAST. EXAM DATE: 12/10/2017 07:41 PM CLINICAL HISTORY: Known acute infarction left nick radiata. Severe right upper and lower weakness COMPARISON: MR brain 12/10/2017 TECHNIQUE: - CT Scan Head: Using a multidetector scanner, axial images were acquired from the foramen magnum to the skull vertex prior to and following contrast administration. - CT Angiogram: Using a multidetector scanner, high-resolution axial images were acquired from the sk ull base through vertex following rapid infusion of intravenous contrast. Reformats: Multiplanar MIP reformats were reconstructed. Nascet criteria used for stenosis measurement. IV Contrast: 80 cc Isovue [address] protocol optimization, one or more of the following dose reduction techniques w ere utilized for this exam: automated exposure control, adjustment of mA and/or KV based on patient s ize, or use of iterative reconstructive technique. FINDINGS: NON-CONTRAST HEAD: Parenchyma: There is a subtle hypodensity within the left nick radiata (series 3 image 17), consist ent with the patient's known acute infarction. No CT evidence of interval development of additional i nfarctions. No evidence of intraparenchymal hemorrhage, mass effect, or midline shift. Moderate scatt ered periventricular and deep white matter hypodensities, corresponding to the FLAIR signal abnormali ty on the prior MRI, which while nonspecific are again most suggestive of sequela of chronic microang iopathy. As discussed in the MRI report, this is unusual for a patient of this age, unless there are significant risk factors such as diabetes or hypertension. Focus of encephalomalacia posterior right cerebellar hemisphere, sequela of remote infarction. Stuart-white differentiation is distinct. Extraaxial Spaces: Normal for age. No subdural or epidural collections identified. Ventricles: Normal in size and position. Sinuses and orbits: Imaged paranasal sinuses, orbits, and mastoids show no significant abnormality. Bones: No evidence of fracture or calvarial defect. Other: None. POST-CONTRAST HEAD: No abnormal enhancement. CT ANGIOGRAM HEAD: Mild atherosclerosis right carotid siphon, no hemodynamically significant stenosis. Mild to moderate atherosclerosis left carotid siphon, maximal stenosis 10-20%. The left vertebral artery is dominant. Moderate atherosclerosis V4 segment left vertebral artery, maximal stenosis approximately 20%. There is PICA termination of the small right vertebral artery. The right MCA appears unremarkable. The ACAs bilaterally appear unremarkable. Approximately 50% narrowing proximal M1 segment left MCA (series 14 image 144). The left MCA is otherwise unremarkable. The posterior communicating arteries are not rhea kushal visualized on either side, likely hypoplastic or aplastic. Approximately 60-70% focal narrowing P2/P3 junction left BATTERY REPAIRER (series 14 image 139). The right BATTERY REPAIRER is unremarkable. DURAL VENOUS SINUSES AND MAJOR CENTRAL VEINS: Patent. IMPRESSION: 1. Subtle hypodensity within the left nick radiata (series 3 image 17), consistent with the patient 's known acute infarction. No CT evidence of interval development of additional infarctions. 2. Moderate scattered periventricular and deep white matter hypodensities, corresponding to the FLAIR signal abnormality on the prior MRI, which while nonspecific this again most suggestive of sequela o f chronic microangiopathy. As discussed in the MRI report, this is unusual for a patient of this age, unless there are significant risk factors such as diabetes or hypertension. 3. Focus of encephalomalacia posterior right cerebellar hemisphere, sequela of remote infarction. Gra y-white differentiation is distinct. 4. No abnormal enhancement on the postcontrast CT head. 5. No CTA evidence of feng occlusion, dissection, aneurysm, vascular malformation within the intracr anial arteries. Multifocal stenoses as detailed above and summarized below. 6. Mild atherosclerosis right carotid siphon, no hemodynamically significant stenosis. Mild to modera te atherosclerosis left carotid siphon, maximal stenosis 10-20%. The left vertebral artery is dominan t. 7. Moderate atherosclerosis V4 segment left vertebral artery, maximal stenosis approximately 20%. 8. Approximately 50% narrowing proximal M1 segment left MCA (series 14 image 144). 9. Approximately p60-70% focal narrowing P2/P3 junction left BATTERY REPAIRER (series 14 image 139). [facility] Referring Provider Line: [phone] SITE ID: [id number]
--- NOTE | 2017-12-10 20:26 | CT Report ---
EXAM: CT ANGIOGRAM NECK EXAM DATE: 12/10/2017 07:41 PM. CLINICAL HISTORY: Stroke, new rue weakness. COMPARISON: None. TECHNIQUE: Routine axial helical imaging was performed from the skull base through the aortic arch. R econstructions: Routine multiplanar 3D MIP reconstructions. IV Contrast: Yes. Evaluation of arterial stenosis is based on a NASCET method of measurement. In accordance with CT protocol optimization, one or more of the following dose reduction techniques w ere utilized for this exam: automated exposure control, adjustment of mA and/or KV based on patient s ize, or use of iterative reconstructive technique. FINDINGS: Mild atherosclerosis aortic arch, no hemodynamically significant stenosis. Moderate atherosclerosis r ight subclavian artery origin. Maximal stenosis 20-30%. Right Carotid: Moderate atherosclerosis right carotid bifurcation and the right carotid bulb, maximal stenosis 37%, mild by NASCET criteria The common carotid, internal carotid, and external carotid art eries are patent. No evidence of dissection. Left Carotid: Moderate atherosclerosis left carotid bifurcation and left carotid bulb, maximal stenos is approximately 20%, mild by NASCET criteria . The common carotid, internal carotid, and external ca rotid arteries are patent. No evidence of dissection. Vertebrals: The left vertebral artery is dominant. The right vertebral artery small throughout its en tire course, likely congenital there is PICA termination of the small right vertebral artery. Atheros clerosis left vertebral artery origin, maximal stenosis 30-40%. The extracranial vertebrobasilar syst em is otherwise unremarkable.. Intracranial Circulation: Concurrently obtained CTA head is dictated separately. Other: Multifocal groundglass densities within the visualized lung apices, nonspecific, may represent subsegmental atelectasis. Moderate multilevel degenerative spondylosis of the visualized spine, no a cute fracture or malalignment. The visualized soft tissues of the neck demonstrate no acute abnormali ty. IMPRESSION: 1. Concurrently obtained CT head is dictated separately. No CTA evidence of occlusion or dissection w ithin the extracranial arteries. Multifocal atherosclerosis as detailed above and summarized below. 2. Moderate atherosclerosis right carotid bifurcation and the right carotid bulb, maximal stenosis 37 %, mild by NASCET criteria 3. Moderate atherosclerosis left carotid bifurcation and left carotid bulb, maximal stenosis approxim ately 20%, mild by NASCET criteria . 4. The left vertebral artery is dominant. The right vertebral artery small throughout its entire cour se, likely congenital there is PICA Termination of the small right vertebral artery. Atherosclerosis left vertebral artery origin, maximal stenosis 30-40%. The extracranial vertebrobasilar system is oth erwise unremarkable. [facility] Referring Provider Line: [phone] SITE ID: [id number]
[2017-12-10] MEDS: ATORVASTATIN 40 MG TABLET PO SCH (21:14)
[2017-12-10] MEDS: SODIUM CHLORIDE 0.9% 1,000 ML IV SCH (21:29)
[2017-12-11] MEDS: SODIUM CHLORIDE 0.9% 1,000 ML IV SCH ×3 (05:00→14:56)
[2017-12-11] MEDS: POLYETHYLENE GLYCOL 3350 17 GM PACKET PO SCH (07:13)
[2017-12-11] MEDS: SODIUM CHLORIDE FLUSH 0.9% 10 ML SYRINGE IVP SCH ×2 (07:13→12:22)
[2017-12-11] MEDS: ENOXAPARIN 40 MG/0.4 ML SYRINGE SUBQ SCH (09:00)
[2017-12-11] MEDS ORDERED: ASPIRIN CHEW 81 MG TABLET PO SCH (09:00)
[2017-12-11] MEDS: ASPIRIN 325 MG TABLET PO SCH (09:00)
[2017-12-11] MEDS: cefTRIAXone 1 GM in SODIUM CHLORIDE 0.9% MINIBAG 100 ML IV SCH (09:00)
[2017-12-11] MEDS ORDERED: ASPIRIN 325 MG TABLET PO SCH (09:15)
--- NOTE | 2017-12-11 15:05 | PROVIDER PROGRESS NOTE ---
Subjective - Prog Note Date Prog Note Date: 12/11/17 - Subjective Pt reports feeling: Improved Subjective: pt state she feel some improvement on her right hand for its weakness but right leg is still some weakness, Denies fever, chill, headache, CP, SOB. [facility] in-pt rehab accept pt, now wait for insurance to prove Current Medications - Current Medications Current Medications: Active Medications Acetaminophen (Tylenol) 650 mg PO Q4HR PRN PRN Reason: Pain 1 to 4 Aspirin (Ese) 325 mg PO DAILYWM [facility] Last Admin: 12/11/17 09:00 Dose: 325 mg Atorvastatin Calcium (Lipitor) 80 mg PO QPM [facility] Last Admin: 12/10/17 21:14 Dose: 80 mg Enoxaparin Sodium (Lovenox) 40 mg SUBQ DAILY [facility] Last Admin: 12/11/17 09:00 Dose: 40 mg Ceftriaxone Sodium 1 gm/ (Sodium Chloride) 100 mls @ 200 mls/hr IV Q24H [facility] Last Infusion: 12/11/17 10:24 Dose: Infused Sodium Chloride (Normal Saline 0.9%) 1,000 mls @ 83.3 mls/hr IV .Q12H1M [facility] Last Admin: 12/11/17 14:56 Dose: 83.3 mls/hr Polyethylene Glycol (Miralax) 17 gm PO DAILY [facility] Last Admin: 12/11/17 07:13 Dose: Not Given Sodium Chloride (Normal Saline Flush 0.9%) 10 ml IVP PRN PRN PRN Reason: NEEDED PER PROVIDER ORDERS Sodium Chloride (Normal Saline Flush 0.9%) 10 ml IVP 0100,0900,1700 [facility] Last Admin: 12/11/17 12:22 Dose: Not Given Multivitamin [Theragran] 1 tab PO DAILY 12/10/17 Objective - Vital Signs/Intake & Output Vital Signs: Vital Signs x48h Temp Pulse Resp BP Pulse Ox 12/11/17 07:43 36.5 C 76 16 189/75 H 96 Intake & Output: Intake & Output 12/08/17 12/09/17 12/10/17 12/11/17 23:59 23:59 23:59 23:59 Intake Total 700 1290 2322.083 Output Total 1025 100 Balance 543 468 0871.083 - Objective General Appearance: positive: No acute distress, Alert. negative: Lethargic Eyes Bilateral: positive: Normal inspection, PERRL, No lid inflammation, Conjunctivae nml ENT: positive: ENT inspection nml, Pharynx nml, No signs of dehydration. negative: Purulent nasal drainage, Pharyngeal erythema, Oral lesions, Dry mucous membranes Neck: positive: Nml inspection, Thyroid nml, No JVD, Trachea midline. negative : Thyromegaly, Lymphadenopathy (R), Lymphadenopathy (L), Stiff neck, Carotid bruit, Swelling/bruising, Tracheal deviation Respiratory: positive: Chest non-tender, No respiratory distress, Breath sounds nml. negative: Wheezes, Rales, Rhonchi Cardiovascular: positive: Regular rate & rhythm, No murmur, No gallop. negative : Irregularly irregular, Extrasystoles, Tachycardia, Bradycardia, Systolic murmur, Diastolic murmur Peripheral Pulses: 2+ Radial (R), 2+ Radial (L), 2+ Dorsalis pedis (R), 2+ Dorsalis pedis (L) Abdomen: positive: Non-tender, No organomegaly, Nml bowel sounds. negative: No distention, Tenderness, Guarding, Rebound Back: positive: Nml inspection. negative: CVA tenderness (R), CVA tenderness (L ) Skin: positive: Color nml, No rash, Warm, Dry. negative: Cyanosis, Diaphoresis , Pallor Extremities: positive: Non-tender, Nml appearance. negative: Calf tenderness, Joint swelling, Norma's sign/cords Neurologic/Psychiatric: positive: Oriented x3, Sensation nml, Mood/affect nml, Weakness. 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 CTA of head and neck, and US of Carotid reveals unremarkable findings, will call [place]. The ECHO result is pending. continue ASA and statin continue PT/OT. ST evaluated pt, pt can tolerate regular diet plan, per PT/OT recommend for in-pt rehab, [facility] in-pt rehab accept pt, now wait for insurance to prove Presented to ED 1d following acute onset of RLE weakness. No sensory deficit. No other neurologic deficits. Differntial considered and workup included normal head CT. MRI brain today with severe white matter disease, OLD R PICA embolic type infarct and NEW L lacunar infarct, more likely from small vessel disease. Longstanding uncontrolled HTN likely contributing. 6pm noted to have increasing RUE weakness, +drift and poor coordination. D/w Dr Alberto Palafox, [place]e neuro, advises that lacunar type infarct often wax/wane of have further extension. Recommends: -IVF to increase cerebral perfusion, hold antihypertensive -CT brain to r/o hemorrhagic conversion -CTA head/neck to assess vascular structures +He will be oncall tomorrow and feel free to touch base with results -Continue tele -Await ECHO and carotid US results -PT/OT eval, reccs IRF, referrals sent to [facility] -ASA + statin (2) Uncontrolled hypertension Conclusion/Plan: hold Lisinopril now, and IVF mild to moderate, monitor BP, and tele add PRN Clonidine Hx of previous high readings, but care at multiple [facility] so never diagnosed or treated. Given stroke in differential on admit, permissive HTN allowed. -Now 48hr post insult and started on low dose lisinopril. AM BP fluctuating 150/80-200/80. +given new symptoms, lisinopril stopped, resume at 2.5mg in future -Monitor BP routinely and titrate meds as needed (3) UTI (urinary tract infection) Conclusion/Plan: continue Rocephin follow up culture UA c/w infection, no LUTS though. Cx E coli. -CTX daily -Await cx sensitivity and switch to PO agent
[2017-12-11] MEDS ORDERED: cloNIDine 0.1 MG TABLET PO PRN (16:23)
[2017-12-11] MEDS: ATORVASTATIN 40 MG TABLET PO SCH (20:54)
[2017-12-12] MEDS: SODIUM CHLORIDE 0.9% 1,000 ML IV SCH (00:10)
[2017-12-12] MEDS: SODIUM CHLORIDE FLUSH 0.9% 10 ML SYRINGE IVP SCH ×3 (00:11→18:00)
[2017-12-12 08:31] LABS: BASOPHILS # (AUTO) 0.1 10^3/uL (0.0-0.1); EOSINOPHILS # (AUTO) 0.1 10^3/uL (0.0-0.7); EOSINOPHILS % (AUTO) 1.9 %; HGB - HEMOGLOBIN 12.6 g/dL (12.0-16.0); LYMPHOCYTES # (AUTO) 2.1 10^3/uL (1.5-3.5); LYMPHOCYTES % (AUTO) 29.3 %; MEAN CORPUSCULAR HEMOGLOBIN 28.6 pg (27.0-31.0); MEAN CORPUSCULAR HGB CONC 33.3 g/dL (32.0-36.0); MEAN CORPUSCULAR VOLUME 85.8 fL (81.0-99.0); MEAN PLATELET VOLUME 7.9 fL (7.9-10.8); MONOCYTES # (AUTO) 0.3 10^3/uL (0.0-1.0); MONOCYTES % (AUTO) 4.4 %; NEUTROPHILS # (AUTO) 4.6 10^3/uL (1.5-6.6); NEUTROPHILS % (AUTO) 63.4 %; PLT - PLATELET COUNT 316 10^3/uL (130-450); RED BLOOD COUNT 4.41 10^6/uL (4.20-5.40); RED CELL DISTRIBUTION WIDTH 14.2 % (12.0-15.0); WHITE BLOOD COUNT 7.3 x10^3/uL (4.8-10.8)
[2017-12-12 08:44] LABS: ALBUMIN 3.7 g/dL (3.2-5.5); ALBUMIN/GLOBULIN RATIO 1.2 (1.0-2.2); BILIRUBIN,TOTAL 0.7 mg/dL (0.2-1.0); CALCIUM 8.6 mg/dL (8.5-10.3); CREATININE 0.6 mg/dL (0.4-1.0); TOTAL PROTEIN 6.9 g/dL (6.7-8.2)
[2017-12-12] MEDS: cefTRIAXone 1 GM in SODIUM CHLORIDE 0.9% MINIBAG 100 ML IV SCH (08:55)
[2017-12-12] MEDS: ASPIRIN 325 MG TABLET PO SCH (08:55)
[2017-12-12] MEDS: ENOXAPARIN 40 MG/0.4 ML SYRINGE SUBQ SCH (08:58)
[2017-12-12] MEDS: POLYETHYLENE GLYCOL 3350 17 GM PACKET PO SCH (09:00)
--- NOTE | 2017-12-12 16:07 | PROVIDER PROGRESS NOTE ---
Subjective - Prog Note Date Prog Note Date: 12/12/17 - Subjective Pt reports feeling: Improved Subjective: pt state she still has some weakness at her right lower extremity, slight improved. Denies CP, SOB, fever, chill, cough. wait for pt's health insurance to prove to in-pt rehab Current Medications - Current Medications Current Medications: Active Medications Acetaminophen (Tylenol) 650 mg PO Q4HR PRN PRN Reason: Pain 1 to 4 Aspirin (Ese) 325 mg PO DAILYWM [facility] Last Admin: 12/12/17 08:55 Dose: 325 mg Atorvastatin Calcium (Lipitor) 80 mg PO QPM [facility] Last Admin: 12/11/17 20:54 Dose: 80 mg Clonidine HCl (Catapres) 0.1 mg PO BID PRN PRN Reason: Hypertensive Emergency Enoxaparin Sodium (Lovenox) 40 mg SUBQ DAILY [facility] Last Admin: 12/12/17 08:58 Dose: 40 mg Ceftriaxone Sodium 1 gm/ (Sodium Chloride) 100 mls @ 200 mls/hr IV Q24H [facility] Last Infusion: 12/12/17 09:30 Dose: Infused Polyethylene Glycol (Miralax) 17 gm PO DAILY [facility] Last Admin: 12/12/17 09:00 Dose: Not Given Sodium Chloride (Normal Saline Flush 0.9%) 10 ml IVP PRN PRN PRN Reason: NEEDED PER PROVIDER ORDERS Sodium Chloride (Normal Saline Flush 0.9%) 10 ml IVP 0100,0900,1700 [facility] Last Admin: 12/12/17 14:35 Dose: Not Given Multivitamin [Theragran] 1 tab PO DAILY 12/10/17 Objective - Vital Signs/Intake & Output Reviewed Vital Signs: Yes Vital Signs: Vital Signs x48h Temp Pulse Resp BP Pulse Ox 12/12/17 15:28 37.0 C 74 16 193/80 H 98 Intake & Output: Intake & Output 12/09/17 12/10/17 12/11/17 12/12/17 23:59 23:59 23:59 23:59 Intake Total 700 1290 2972.083 1889.137 Output Total 1025 850 400 Balance 818 825 7839.083 1489.137 - Objective General Appearance: positive: No acute distress, Alert. negative: Lethargic Eyes Bilateral: positive: Normal inspection, PERRL, No lid inflammation, Conjunctivae nml ENT: positive: ENT inspection nml, Pharynx nml, No signs of dehydration. negative: Purulent nasal drainage, Pharyngeal erythema, Oral lesions, Dry mucous membranes Neck: positive: Nml inspection, Thyroid nml, No JVD, Trachea midline. negative : Thyromegaly, Lymphadenopathy (R), Lymphadenopathy (L), Stiff neck, Carotid bruit, Swelling/bruising, Tracheal deviation Respiratory: positive: Chest non-tender, No respiratory distress, Breath sounds nml. negative: Wheezes, Rales, Rhonchi Cardiovascular: positive: Regular rate & rhythm, No murmur, No gallop. negative : Irregularly irregular, Extrasystoles, Tachycardia, Bradycardia, JVD present, Systolic murmur, Diastolic murmur Peripheral Pulses: 2+ Radial (R), 2+ Radial (L), 2+ Dorsalis pedis (R), 2+ Dorsalis pedis (L) Abdomen: positive: Non-tender, No organomegaly, Nml bowel sounds, No distention. negative: Tenderness, Guarding, Rebound, Abnml bowel sounds Back: positive: Nml inspection. negative: CVA tenderness (R), CVA tenderness (L ) Skin: positive: Color nml, No rash, Warm, Dry. negative: Cyanosis, Diaphoresis , Pallor Extremities: positive: Non-tender, Nml appearance. negative: Calf tenderness, Joint swelling, Norma's sign/cords Neurologic/Psychiatric: positive: Oriented x3, Sensation nml, Mood/affect nml, Weakness. negative: Sensory loss, Facial droop, Slurred/abnml speech, Depressed mood/affect - Lab Results Fish Bones: 12/12/17 08:22 12/12/17 08:22 Other Labs: Lab Results x24hrs 12/12/17 12/12/17 Range/Units 08:22 08:22 WBC 7.3 (4.8-10.8) x10^3/uL RBC 4.41 (4.20-5.40) 10^6/uL Hgb 12.6 (12.0-16.0) g/dL Hct 37.9 (37.0-47.0) % MCV 85.8 (81.0-99.0) fL MCH 28.6 (27.0-31.0) pg MCHC 33.3 (32.0-36.0) g/dL RDW 14.2 (12.0-15.0) % Plt Count 316 (130-450) 10^3/uL MPV 7.9 (7.9-10.8) fL Neut # 4.6 (1.5-6.6) 10^3/uL Lymph # 2.1 (1.5-3.5) 10^3/uL Pierce # 0.3 (0.0-1.0) 10^3/uL Eos # 0.1 (0.0-0.7) 10^3/uL Baso # 0.1 (0.0-0.1) 10^3/uL Absolute Nucleated RBC 0.00 x10^3/uL Nucleated RBC % 0.0 /100WBC Sodium 138 (135-145) mmol/L Potassium 3.8 (3.5-5.0) mmol/L Chloride 106 (101-111) mmol/L Carbon Dioxide 25 (21-32) mmol/L Anion Gap 7.0 (6-13) BUN 7 (6-20) mg/dL Creatinine 0.6 (0.4-1.0) mg/dL Estimated GFR (MDRD) 107 (>89) Glucose 100 (70-100) mg/dL Calcium 8.6 (8.5-10.3) mg/dL Magnesium 2.0 (1.7-2.8) mg/dL Total Bilirubin 0.7 (0.2-1.0) mg/dL AST 24 (10-42) IU/L ALT 24 (10-60) IU/L Alkaline Phosphatase 83 (42-121) IU/L Total Protein 6.9 (6.7-8.2) g/dL Albumin 3.7 (3.2-5.5) g/dL Globulin 3.2 (2.1-4.2) g/dL Albumin/Globulin Ratio 1.2 (1.0-2.2) Assessment/Plan - Problem List (1) Right leg weakness Impression: (1) Right leg weakness Impression: (1) Left sided lacunar infarction Assessment/Plan: 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 continue ASA and Statin weakness of right upper extremity is improved but right lower extremity is better but still present some weakness. CTA of head and neck, and US of Carotid reveals unremarkable findings, will call Hebrew. The ECHO result is pending. continue ASA and statin continue PT/OT. ST evaluated pt, pt can tolerate regular diet plan, per PT/OT recommend for in-pt rehab, [facility] in-pt rehab accept pt, now wait for insurance to prove Presented to ED 1d following acute onset of RLE weakness. No sensory deficit. No other neurologic deficits. Differntial considered and workup included normal head CT. MRI brain today with severe white matter disease, OLD R PICA embolic type infarct and NEW L lacunar infarct, more likely from small vessel disease. Longstanding uncontrolled HTN likely contributing. 6pm noted to have increasing RUE weakness, +drift and poor coordination. D/w Dr Alberto Palafox, [place] neuro, advises that lacunar type infarct often wax/wane of have further extension. Recommends: -IVF to increase cerebral perfusion, hold antihypertensive -CT brain to r/o hemorrhagic conversion -CTA head/neck to assess vascular structures +He will be oncall tomorrow and feel free to touch base with results -Continue tele -Await ECHO and carotid US results -PT/OT eval, reccs IRF, referrals sent to [facility] -ASA + statin (2) Uncontrolled hypertension Conclusion/Plan: d/c iVF continue vital monitor hold Lisinopril now, and IVF mild to moderate, monitor BP, and tele add PRN Clonidine Hx of previous high readings, but care at multiple [facility] so never diagnosed or treated. Given stroke in differential on admit, permissive HTN allowed. -Now 48hr post insult and started on low dose lisinopril. AM BP fluctuating 150/80-200/80. +given new symptoms, lisinopril stopped, resume at 2.5mg in future -Monitor BP routinely and titrate meds as needed (3) UTI (urinary tract infection) Conclusion/Plan: UA culture reveals positive for Ecoli, sensitive to Rocephin continue antibiotics continue Rocephin follow up culture UA c/w infection, no LUTS though. Cx E coli. -CTX daily -Await cx sensitivity and switch to PO agent
[2017-12-12] MEDS: ATORVASTATIN 40 MG TABLET PO SCH (20:37)
[2017-12-13 05:42] LABS: BASOPHILS # (AUTO) 0.1 10^3/uL (0.0-0.1); EOSINOPHILS # (AUTO) 0.2 10^3/uL (0.0-0.7); EOSINOPHILS % (AUTO) 2.2 %; LYMPHOCYTES # (AUTO) 2.2 10^3/uL (1.5-3.5); LYMPHOCYTES % (AUTO) 27.1 %; MEAN CORPUSCULAR HGB CONC 32.7 g/dL (32.0-36.0); MEAN CORPUSCULAR VOLUME 85.6 fL (81.0-99.0); MEAN PLATELET VOLUME 7.9 fL (7.9-10.8); MONOCYTES # (AUTO) 0.5 10^3/uL (0.0-1.0); MONOCYTES % (AUTO) 5.9 %; NEUTROPHILS # (AUTO) 5.3 10^3/uL (1.5-6.6); NEUTROPHILS % (AUTO) 63.8 %; PLT - PLATELET COUNT 311 10^3/uL (130-450); RED BLOOD COUNT 4.29 10^6/uL (4.20-5.40); RED CELL DISTRIBUTION WIDTH 14.3 % (12.0-15.0); WHITE BLOOD COUNT 8.3 x10^3/uL (4.8-10.8)
[2017-12-13 05:54] LABS: ALBUMIN 3.6 g/dL (3.2-5.5); ALBUMIN/GLOBULIN RATIO 1.2 (1.0-2.2); BILIRUBIN,TOTAL 0.3 mg/dL (0.2-1.0); CALCIUM 8.7 mg/dL (8.5-10.3); CREATININE 0.6 mg/dL (0.4-1.0); TOTAL PROTEIN 6.6 g/dL (6.7-8.2)
[2017-12-13 07:35] VITALS: BP 173/93
--- NOTE | 2017-12-13 07:36 | PROVIDER PROGRESS NOTE ---
Hospitalist Cross-cover Note - Cross-Cover Note Cross-Cover Note: I paged [place] Neurologist and leave my phone number. I wish to have some recommendations, regarding pt's new CTA study of brain and neck, from expert, but I did not receive any phone call back from [place]. I added this information in the pt's discharge summary, and advise [facility] continue to contact the neurologist for further medical intervention and needs. I reported this medical condition to my maintenance and utilities supervisor Dilma Roche.
--- NOTE | 2017-12-13 07:46 | DISCHARGE SUMMARY ---
Discharge Summary Discharge Date: 12/13/17 Discharging Provider: CASTELLANOS Code Status: Attempt Resuscitation Condition at Discharge: Poor Discharge Disposition: 02 Transfer Acute Care Hosp Discharge Facility Name: [facility] - DIAGNOSES Admission Diagnoses: (1) Right leg weakness (2) Hypertension (3) UTI (urinary tract infection) Discharge Diagnoses with Status of Each Condition: (1) Left sided lacunar infarction/SEVERE WHITE MATTER DISEASE/OLD R PICA emobolic type STROKE/RIGHT LOWER EXTREMITY WEAKNESS/RIGHT UPPER EXTREMITY WEAKNESS/left MCA narrowing/left CHANGER FIXER narrowing transfer to [facility] in-pt rehab continue PT/OT, as need for ST, further manage by PCP and neurologist expert. Please continue to contact neurologist for further recommendations. (2) Uncontrolled hypertension Because of left sided lacunar infarction, neurologist recommended in our facility to keep higher BP for stroke recovery. advise to contact neurologist for further management. (3) UTI (urinary tract infection) treated with Rocephin, continue to finish the antibiotics course - HPI History of Present Illness: refer from Ms. Piper's HPI on 12/09/17 as the following: Rajani Nunez is a pleasant 47yoF with hx of untreated hypertension and polio as a child. She does not have a PCP and only sees [facility] for prn needs. She is self described [id number] who commutes to [place] from [facility] for work, reports recent weight gain due to stress and inactivity. Patient was in her usual state of health until Sunday morning when she awoke for work. She had new mild low back pain and right leg weakness. 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 No other injury. She reports also feeling "off balance" but denies dizziness. She drove home after work, having to move inch by inch when no supporting wall or rail available. She put a brace on it at home for support. Today the symptoms were not better so she came to ER for eval. She denies visual changes, no confusion or speech changes. No pain in the leg or change in sensation. She has had no dizziness/lightheadedness or syncope. She denies similar episodes in the past. Denies prior injury. Denies bowel or bladder change/incontinence. --- Her BP is high, she says she is nto suprised. It had been high in [facility] before but she is very much against taking medications unless absolutely necessary. --- Of note 6-7mo ago she reports problem with the left arm where the deltoid went cold and weak, she couldn't lift her arm. She says the hand "would take off on its own". She saw [facility], told she had carpal tunnel, given a brace. No symptoms recently. ER course of stay: In ER hypertensive and tachycardic, Labs remarkable for UTI, renal function WNL. Her CK is elevated 521. Case discussed with [place] Neuro who recommends MRI brain and L-spine. Hospitalist contacted for admission. - CONSULTS | PROCEDURES Consultations: consult with neurologist in [place] - HOSPITAL COURSE Hospital Course: Pt was admitted for right lower extremity weakness, uncontrolled HTN, and UTI. UTi was treated antibiotic, and UA culture was followed. MRI reveals pt has left sided lacunar infarction, and other neurological abnormal image study( please review MRI study), and left MCA and left CHANGER FIXER (please review CTA studies) . Neurologist in [place] was consulted when MRI study was done, and the recommendation was followed, pt was prescribed ASA and Statin. PT/OT/ST evaluated and treated pt in this hospital. Call to neurologist in [place] for New CTA study was made, but did not receive the call back yet, please continue to contact the neurologist for further recommendations. - ALLERGIES Allergies/Adverse Reactions: Allergies Allergy/AdvReac Type Severity Reaction Status Date / Time No Known Drug Allergies Allergy Verified 12/09/17 11:28 - MEDICATIONS Home Medications: Ambulatory Orders Medication Instructions Recorded Confirmed Multivitamin [Theragran] 1 tab PO DAILY 12/10/17 12/10/17 - PHYSICAL EXAM AT DISCHARGE General Appearance: positive: No acute distress, Alert. negative: Lethargic Eyes Bilateral: positive: Normal inspection, PERRL, No lid inflammation, Conjunctivae nml ENT: positive: ENT inspection nml, Pharynx nml, No signs of dehydration. negative: Purulent nasal drainage, Pharyngeal erythema, Oral lesions Neck: positive: Nml inspection, Thyroid nml, No JVD, Trachea midline. negative : Thyromegaly, Lymphadenopathy (R), Lymphadenopathy (L), Stiff neck, Carotid bruit, Swelling/bruising, Tracheal deviation Respiratory: positive: Chest non-tender, No respiratory distress, Breath sounds nml. negative: Wheezes, Rales, Rhonchi Cardiovascular: positive: Regular rate & rhythm, No murmur, No gallop. negative : Irregularly irregular, Extrasystoles, Tachycardia, Bradycardia, Systolic murmur, Diastolic murmur Peripheral Pulses: positive: 2+ Abdomen: positive: Non-tender, No organomegaly, Nml bowel sounds, No distention. negative: Tenderness, Guarding, Rebound Back: positive: Nml inspection. negative: CVA tenderness (R), CVA tenderness (L ) Skin: positive: Color nml, No rash, Warm, Dry. negative: Cyanosis, Diaphoresis , Pallor Extremities: positive: Non-tender. negative: Calf tenderness, Joint swelling, Norma's sign/cords Neurologic/Psychiatric: positive: Oriented x3, Weakness. negative: Facial droop , Slurred/abnml speech, Depressed mood/affect - LABS Result Diagrams: 12/13/17 05:25 12/13/17 05:25 - FOLLOW UP Follow Up: transfer to [facility] for further advance care - TIME SPENT Time Spent in Discharge (Minutes): 50
[2017-12-13] MEDS: SODIUM CHLORIDE FLUSH 0.9% 10 ML SYRINGE IVP SCH ×2 (07:53→08:19)
[2017-12-13] MEDS: cefTRIAXone 1 GM in SODIUM CHLORIDE 0.9% MINIBAG 100 ML IV SCH (08:19)
[2017-12-13] MEDS: ENOXAPARIN 40 MG/0.4 ML SYRINGE SUBQ SCH (08:27)
[2017-12-13] MEDS: ASPIRIN 325 MG TABLET PO SCH (08:27)
[2017-12-18] MEDS ORDERED: IOPAMIDOL-300 100 ML VIAL IVP ONE (09:50)
== END 2017-12-13 08:30 | disposition short-term general hospital (02) | DRG 65 ==
LOC: ED 11:16 → MS2 14:27
PROVIDERS: ADMIT Nurse Practitioner Acute Care; ATTEND Nurse Practitioner Gerontology
DX: I63.8 Other cerebral infarction (principal); G81.91 Hemiplegia, unspecified affecting right dominant side; R90.82 White matter disease, unspecified; Z86.73 Personal history of transient ischemic attack (TIA), and cerebral infarction without residual deficits; I10 Essential (primary) hypertension; Z86.12 Personal history of poliomyelitis; H54.7 Unspecified visual loss; M54.16 Radiculopathy, lumbar region; R29.701 NIHSS score 1; B96.20 Unspecified Escherichia coli [E. coli] as the cause of diseases classified elsewhere; F32.9 Major depressive disorder, single episode, unspecified
CPT/HCPCS: 36415; 70450; 70496; 70498; 70551; 72148; 80053; 80061; 81001; 81003; 82550; 82553; 83036; 83690; 83721; 83735; 84439; 84443; 84481; 84484; 85025; 87086; 93005; 93306; 93880; 99283; 99284; 99285